=== PATIENT | female | born 1960 | race Caucasian/White ===

== ENCOUNTER 2024-09-16 07:52 | Emergency (ER) | payer MEDICARE ==
[~2024-09-16] VITALS: Ht 152.4 cm; Wt 61.2 kg
[2024-09-16 07:52] VITALS: BP 135/72; PULSE 94; RESP 18; TEMP 99.1; O2SAT 95
[2024-09-16] MEDS ORDERED: ZOFRAN ONE (08:11)
[2024-09-16] MEDS ORDERED: NS 1000ML 1,000 ML ONE (08:11)
[2024-09-16] MEDS ORDERED: OFIRMEV 100 ML IV ONE (08:11)
[2024-09-16] MEDS ORDERED: REGLAN ONE (08:11)
[2024-09-16] MEDS: ZOFRAN IV STA (08:16)
[2024-09-16] MEDS: REGLAN IV STA (08:16)
[2024-09-16] MEDS: NS 1000ML 1,000 ML IV STA (08:16)
[2024-09-16] MEDS: OFIRMEV 100 ML IV STA (08:16)
[2024-09-16 08:19] LABS: BASOPHIL % 0.1 % (0.1-1.2); HEMATOCRIT(ML) 33.5 % (36.0-46.0); HEMOGLOBIN 11.2 g/dL (12.0-15.0); LYMPHOCYTES # 0.47 10^3/uL1 (1.0-4.8); LYMPHOCYTES % 6.6 % (24.0-44.0); MEAN CORP HGB 29.8 pg (26-34); MEAN CORP HGB CONCENTRATION 33.4 g/dL (33-36.5); MEAN CORP VOLUME 89.1 fL (78-100); MONOCYTES # 0.9 10^3/uL (0.3-0.8); MONOCYTES % 13.2 % (5.0-12.0); NEUTROPHIL # 5.7 10^3/uL (1.8-7.7); PLATELET COUNT 233 10^3/uL (150-400); RED BLOOD CELL 3.76 10^6/uL (4.00-5.20); RED CELL DISTRIBUTION WIDTH 12.3 % (11.5-14.5); WHITE BLOOD CELL 7.1 10^3/uL (4.5-11.0)
[2024-09-16 08:20] LABS: +ADD MANUAL DIFF(NO CHRG) NO
[2024-09-16 08:34] LABS: ALBUMIN(ML) 3.4 g/dL (3.4-5.0); CALCIUM 9.2 mg/dL (8.4-10.5); CARBON DIOXIDE 25.5 mmol/L (20.0-32); CREATININE SERUM 0.72 mg/dL (0.59-1.40); EST GFR, NON-AA 81.3 (>/=60); POTASSIUM 3.5 mmol/L (3.6-5.2)
[2024-09-16] MEDS ORDERED: ONDA-226 PO (09:07)
[2024-09-16] MEDS ORDERED: METO10TA PO (09:07)
[2024-09-16 09:17] VITALS: BP 119/67; PULSE 79; RESP 18; O2SAT 96
== END 2024-09-16 09:19 | disposition home or self-care (01) ==
LOC: ER 07:52
DX: A05.9 Bacterial foodborne intoxication, unspecified (principal); R11.2 Nausea with vomiting, unspecified; D64.9 Anemia, unspecified; E86.0 Dehydration
CPT/HCPCS: 99284; 96374; 96375; 80053; 85025; 36415; 83605; 83690; J7030; J0131; J2405; J2765